=== PATIENT | male | born 1985 | race Caucasian/White ===

== ENCOUNTER 2023-06-29 09:41 | Emergency (ER) | payer BC ==
[2023-06-29] MEDS ORDERED: Ketorolac Tromethamine 30 MG/ML VIAL ONE (10:03)
[2023-06-29] MEDS ORDERED: Cyclobenzaprine 10 MG TAB ONE (10:04)
== END 2023-06-29 11:36 | disposition home or self-care (01) ==
LOC: CSHERS 09:41
DX: S39.012A Strain of muscle, fascia and tendon of lower back, initial encounter (principal); W19.XXXA Unspecified fall, initial encounter
CPT/HCPCS: 72148; 96372; J1885